=== PATIENT | female | born 1950 | race Caucasian/White ===

== ENCOUNTER → 2021-08-10 09:03 | Outpatient (BNVA) | payer MEDICARE, SELFPAY | PROVIDERS: Visit Provider Internal Medicine Rheumatology | DX: M19.90 Unspecified osteoarthritis, unspecified site (principal); R76.8 Other specified abnormal immunological findings in serum; M25.569 Pain in unspecified knee; R60.0 Localized edema; R06.00 Dyspnea, unspecified; Z79.899 Other long term (current) drug therapy; Z79.52 Long term (current) use of systemic steroids; M20.12 Hallux valgus (acquired), left foot; M20.11 Hallux valgus (acquired), right foot; M17.12 Unilateral primary osteoarthritis, left knee | CPT/HCPCS: 36415; 73562; 81001; 82306; 82570; 83880; 84156; 85651; 86140; 86200; 99204 ==

== ENCOUNTER 2021-08-10 10:28 | Outpatient (CLI) | payer MEDICARE, SELFPAY ==
--- NOTE | 2021-08-10 10:55 | XR_ITS ---
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 Findings: No fractures or dislocations are seen. There is medial joint compartment narrowing. The patella is in tact with a small posterior superior spur.. The soft tissues are unremarkable. No bone destruction or erosion is seen. There is no periarticular demineralization or calcifications. XR/XR knee LT 3V* [id number] Impression: Mild osteoarthritis of the left knee. Kellgren-Manoj Classification: grade 2 (minimal): definite osteophytes and p ossible joint space narrowing
--- NOTE | 2021-08-10 10:55 | XR_ITS ---
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 Findings: No fractures or dislocations are seen. The joint spaces are normal. The patella is intact. The soft t issues are unremarkable. No periarticular demineralization or calcifications are seen. XR/XR knee RT 3V* [id number] Impression: Negative right knee. Kellgren-Manoj Classification: grade 0 (none): definite absence of x-ray adina nges of osteoarthritis
[2021-08-10 12:24] LABS: 25 Hydroxy Vitamin D 22 ng/mL (30-100); C Reactive Protein 0.7 mg/L (0.0-4.9); NT Pro B Type Natriuretic Pept 213 pg/mL (0-125)
[2021-08-10 12:49] LABS: Bilirubin Urine Neg (Negative); Blood Urine Trace (Negative); Glucose Urine UA Norm (Normal); Ketones Urine Negative (Negative); Leukocyte Esterase Urine 2+ (Negative); Nitrate Urine Negative (Negative); Protein Urine Neg (Negative); Specific Gravity, Urine 1.015 (1.005-1.030); Urine Appearance SL Hazy (CLEAR); Urine Color Yellow (Yellow); Urobilinogen Urine Norm (Negative); pH Urine 6 (5-7)
[2021-08-10 12:51] LABS: Add Urine Culture? No; Bacteria Urine 1+ /hpf; Squamous Epithelial Cell Urine 25-40 /hpf (0-5); WBC Urine 15-25 /hpf (0-5)
[2021-08-10 13:04] LABS: Urine Creatinine 130 mg/dL (28-217); Urine Protein Random 11 mg/dL
[2021-08-10 13:16] LABS: Erythrocyte Sedimentation Rate 6 mm/hr (0-15)
[2021-08-12 14:07] LABS: Cyclic Citrullinated Peptide <16 UNITS
== END 2021-08-10 10:29 | disposition home or self-care (01) ==
PROVIDERS: Visit Provider Internal Medicine Rheumatology
DX: M19.90 Unspecified osteoarthritis, unspecified site (principal); R76.8 Other specified abnormal immunological findings in serum; Z79.899 Other long term (current) drug therapy; M17.12 Unilateral primary osteoarthritis, left knee
CPT/HCPCS: 36415; 73562; 81001; 82306; 82570; 83880; 84156; 85651; 86140; 86200

== ENCOUNTER → 2021-12-01 10:07 | Outpatient (BNVA) | payer MEDICARE, SELFPAY | PROVIDERS: Visit Provider Internal Medicine Rheumatology | DX: M25.569 Pain in unspecified knee (principal); R60.0 Localized edema; Z79.899 Other long term (current) drug therapy; R76.8 Other specified abnormal immunological findings in serum | CPT/HCPCS: 99214 ==

== ENCOUNTER → 2021-12-08 13:03 | Outpatient (BNVA) | payer MEDICARE, SELFPAY | PROVIDERS: Visit Provider Specialist | DX: G20 Parkinson's disease (principal) | CPT/HCPCS: 99214 ==

== ENCOUNTER → 2022-03-10 10:00 | Outpatient (BNVA) | payer MEDICARE, SELFPAY | PROVIDERS: Visit Provider Internal Medicine Rheumatology | DX: M17.10 Unilateral primary osteoarthritis, unspecified knee (principal); Z79.899 Other long term (current) drug therapy; R76.8 Other specified abnormal immunological findings in serum; R60.0 Localized edema; R06.02 Shortness of breath | CPT/HCPCS: 99214 ==

== ENCOUNTER → 2022-06-07 14:22 | Outpatient (BNVA) | payer MEDICARE, SELFPAY | PROVIDERS: Visit Provider Specialist | DX: G20 Parkinson's disease (principal); G25.81 Restless legs syndrome; G47.52 REM sleep behavior disorder | CPT/HCPCS: 99214 ==

== ENCOUNTER → 2023-06-07 14:21 | Outpatient (BNVA) | payer MEDICARE, SELFPAY | PROVIDERS: Visit Provider Specialist | DX: G20.A1 Parkinson's disease without dyskinesia, without mention of fluctuations (principal); G47.52 REM sleep behavior disorder | CPT/HCPCS: 99214 ==

== ENCOUNTER → 2024-06-05 11:35 | Outpatient (BNVA) | payer MEDICARE, SELFPAY | PROVIDERS: Visit Provider Specialist | DX: G20.A1 Parkinson's disease without dyskinesia, without mention of fluctuations (principal); G47.52 REM sleep behavior disorder | CPT/HCPCS: 99214 ==

== ENCOUNTER → 2025-05-27 10:53 | Outpatient (BNVA) | payer MEDICARE, SELFPAY | PROVIDERS: Visit Provider Specialist | DX: G20.A1 Parkinson's disease without dyskinesia, without mention of fluctuations (principal); G47.52 REM sleep behavior disorder | CPT/HCPCS: 99214 ==